=== PATIENT | female | born 1985 | race Caucasian/White ===

== ENCOUNTER 2023-08-19 00:03 | Emergency (ER) | payer SELFPAY ==
[2023-08-19] MEDS ORDERED: Ketorolac Tromethamine 30 MG (1 mL) VIAL ONE (01:08)
[2023-08-19] MEDS ORDERED: Clindamycin 150 MG CAP ONE (01:08)
[2023-08-19] MEDS ORDERED: HYDROcodone/Acetaminophen 5/325 mg Tablet ONE (01:09)
[2023-08-19] MEDS ORDERED: Dexamethasone 10 MG/ML VIAL ONE (01:09)
== END 2023-08-19 01:15 | disposition home or self-care (01) ==
LOC: ERS 00:03
DX: K04.7 Periapical abscess without sinus (principal); Z87.891 Personal history of nicotine dependence
CPT/HCPCS: 96372; 99282; J1100; J1885

== ENCOUNTER 2024-03-10 16:43 | Emergency (ER) | payer BC, SELFPAY ==
[2024-03-10] MEDS ORDERED: Ketorolac Tromethamine 30 MG (1 mL) VIAL ONE (18:32)
== END 2024-03-10 18:55 | disposition home or self-care (01) ==
LOC: ERS 16:43
DX: M54.2 Cervicalgia (principal); M25.511 Pain in right shoulder
CPT/HCPCS: 96372; 99283; J1885

== ENCOUNTER 2024-03-14 08:07 | Emergency (ER) | payer BC | END 2024-03-14 09:15 | disposition home or self-care (01) | LOC: ERS 08:07 | DX: S16.1XXA Strain of muscle, fascia and tendon at neck level, initial encounter (principal); M62.838 Other muscle spasm; F17.290 Nicotine dependence, other tobacco product, uncomplicated; X50.9XXA Other and unspecified overexertion or strenuous movements or postures, initial encounter | CPT/HCPCS: 99282 ==